=== PATIENT | female | born 1950 | race Caucasian/White ===

== ENCOUNTER → 2016-12-03 | Outpatient (CLI) | payer MEDICARE ==
--- NOTE | 2016-12-03 16:02 | BD ---
EXAMINATION TYPE: MG DEXA axial skeleton. DATE OF EXAM: 12/03/2016 COMPARISON: 11.29.2014 CLINICAL HISTORY: Z79.890 POST MENOPAUSAL Height: 62 Weight: 135 FRAX RISK QUESTIONS: Alcohol (3 or more units per day): NO Family History (Parent hip fracture): NO Glucocorticoids (More than 3mos): NO, ONLY ONE MONTH (Ex: prednisone, prednisolone, methylprednisolone, dexamethasone, and hydrocortisone). History of Fracture in Adulthood: YES Secondary Osteoporosis: NO 1. Type 1 Diabetes: NO 2. Hyperthyroidism: NO 3. Menopause before 45: NO 4. Malnutrition: NO 5. Chronic liver disease: NO Rheumatoid Arthritis: NO Current Tobacco Use: NO RISK FACTORS HISTORY OF: STRESS FX LT FOOT, LAST YR When: AT AGE 65 Family History of Osteoporosis: NO Active: YES Diet low in dairy products/other sources of calcium: NO Postmenopausal woman: YES AT 57 YRS OLD Lost more than 2 inches in height since high school: NO Hyperparathyroidism: NO Adrenal Insufficiency: NO MEDICATIONS: Prednisone or other steroids: PREDNISONE LAST MONTH FOR RESP. FLU How Long: FOR MONTH Osteoporosis Medications: YES, FOSOMAX How Lon-4 YRS Additional Medications: BP MEDS, REFLUX MEDICATION, MULTIVITAMIN Additional History: PRESENTLY HAS MONONUCLEOSIS, EXAM MEASUREMENTS: Bone mineral densitometry was performed using the [employer] System. Bone mineral density as measured about the Lumbar spine is: ----- L1-L4(G/cm2): 0.983 T Score Values are as follows: ----- L1: -1.6 ----- L2: -1.7 ----- L3: -1.1 ----- L4: -2.3 ----- L1-L4: -1.6 Bone mineral density has: Increased 7.1%jennifer study of: 11.29.2014 Bone mineral density about the R hip (g/cm2): 0.755 Bone mineral density about the L hip (g/cm2): 0.829 T Score values are as follows: -----R Neck: -2.1 -----L Neck: -1.7 -----R Total: -2.0 -----L Total: -1.4 Bone mineral density has: Increased 4.5%jennifer study of: 07.17.2015 FRAX%'S: THERE IS A 19.5% CHANCE OF A MAJOR OSTEOPOROTIC FX AND A 3.6% CHANCE OF A HIP FX.....PRO BABILITY IN 10 YRS TIME IMPRESSION: Osteopenia (T Score between -2.5 and -1 as noted by T score values There is slightly increased risk of fracture and the patient may be considered for treatment. Re-Screen 2-5 years FOR BOTH OF HER HIPS AND LUMBAR SPINE Bone density is improved 7.1% from 11/29/2014 within the lumbar spine. Bone density is improved 4.5% w ithin the bilateral hips from 2015 NOTE: T-SCORE=SD OF THE YOUNG ADULT MEAN.
--- NOTE | 2016-12-06 12:50 | MM ---
Reason for exam: screening (asymptomatic). Last mammogram was performed 2 years ago. History: Patient is postmenopausal and history of other cancer. Took hormonal contraceptives for 3 years beginning at age 17. Physical Findings: A clinical breast exam by your physician is recommended on an annual basis and results should be correlated with mammographic findings. MG 3D Screening Mammo W/Cad Bilateral CC and MLO view(s) were taken. Prior study comparison: November 29, 2014, bilateral MG screening mammo w CAD. November 28, 2013, bilateral MG screening mammo w CAD. November 24, 2012, bilateral digital screening mammo w/CAD. The breast tissue is heterogeneously dense. This may lower the sensitivity of mammography. Finding: There are typically benign round calcifications in both breasts. There is no discrete abnormality. ASSESSMENT: Benign, BI-RAD 2 RECOMMENDATION: Routine screening mammogram of both breasts in 1 year.
== END | disposition home or self-care (01) ==
LOC: RADMAMWWP 12:53
PROVIDERS: ATTEND Family Medicine
DX: Z12.31 Encounter for screening mammogram for malignant neoplasm of breast (principal); M85.88 Other specified disorders of bone density and structure, other site; Z79.890 Hormone replacement therapy
CPT/HCPCS: 77080; 77063; G0202

== ENCOUNTER → 2016-12-29 | Outpatient (CLI) | payer MEDICARE ==
--- NOTE | 2016-12-29 12:53 | CT ---
EXAMINATION TYPE: CT sinus wo con DATE OF EXAM: 12/29/2016 COMPARISON: NONE HISTORY: Atypical facial pain CT DLP: [address] of the paranasal sinuses was performed in the axial and coronal planes. Bone and soft tissue settings are submitted. The paranasal sinuses demonstrate normal aeration and development. The paranasal sinuses are free of air fluid level. Mild mucosal thickening at the base of the right maxillary sinus. The osteal meatal units are patent bilaterally. The nasal septum is mildly deviated from right to left. No bony destructive changes are seen within the field of view. IMPRESSION: Mild chronic sinusitis right maxillary sinus. Mild nasal septal deviation.
== END | disposition home or self-care (01) ==
LOC: RADCTMAIN 12:27
PROVIDERS: ATTEND Otolaryngology
DX: J32.0 Chronic maxillary sinusitis (principal); J34.2 Deviated nasal septum
CPT/HCPCS: 70486

== ENCOUNTER → 2017-12-28 | Outpatient (CLI) | payer MEDICARE ==
--- NOTE | 2018-01-02 12:13 | MM ---
Reason for exam: screening (asymptomatic). Last mammogram was performed 1 year and 1 month ago. History: Patient is postmenopausal and has history of other cancer at age 29. Took hormonal contraceptives for 3 years beginning at age 17. Physical Findings: A clinical breast exam by your physician is recommended on an annual basis and results should be correlated with mammographic findings. MG 3D Screening Mammo W/Cad Bilateral CC and MLO view(s) were taken. Prior study comparison: December 03, 2016, bilateral MG 3d screening mammo w/cad. November 29, 2014, bilateral MG screening mammo w CAD. The breast tissue is heterogeneously dense. This may lower the sensitivity of mammography. There is no discrete abnormality. No significant changes when compared with prior studies. ASSESSMENT: Negative, BI-RAD 1 RECOMMENDATION: Routine screening mammogram of both breasts in 1 year.
== END | disposition home or self-care (01) ==
LOC: RADMAMWWP 14:56
PROVIDERS: ATTEND Family Medicine
DX: Z12.31 Encounter for screening mammogram for malignant neoplasm of breast (principal)
CPT/HCPCS: 77063; 77067

== ENCOUNTER 2018-11-02 21:10 | Emergency (ER) | payer MEDICARE ==
[2018-11-02 21:53] VITALS: RESP 18; TEMP 98.8
[2018-11-02] MEDS ORDERED: LABETALOL SYRINGE 5 MG/ML IVP STA (22:08)
[2018-11-02] MEDS ORDERED: SODIUM CHLORIDE 0.9% 1,000 ML IV STA (22:08)
--- NOTE | 2018-11-02 22:09 | ED ---
Recheck HPI - General Chief Complaint: Recheck/Abnormal Lab/Rx Stated Complaint: Eye Pain,High Blood Pressure Time Seen by Provider: 11/02/18 22:07 Source: patient, RN notes reviewed, old records reviewed Mode of arrival: ambulatory Limitations: no limitations - History of Present Illness Initial Comments: This is a 68-year-old female the ER for evaluation of elevated blood pressure history of high blood pressure also complaining of headache oxygen migraine-type headache. Patient has recent addition of blood pressure medication to medication regimen for blood pressure continues to increase. Aside from medics denies any complaints of chest pain shortness breath or abdominal pain MD Complaint: other (abnormal high blood presssure) -: week(s) Returns Today for: other (abnormal blood pressure) Symptoms Since Prior Visit: no new symptoms Context: called for abnormal lab result Associated Symptoms: none - Related Data Home Medications Medication Instructions Recorded Confirmed Omeprazole 40 mg PO AC-SUPPER 11/02/15 11/02/18 Atenolol [Tenormin] 25 mg PO HS 11/02/18 11/02/18 Calcium Carbonate [Calcium] 600 mg PO DAILY 11/02/18 11/02/18 Famotidine [Pepcid AC] 10 mg PO DAILY 11/02/18 11/02/18 Previous Rx's Medication Instructions Recorded Hydrochlorothiazide [Hydrodiuril] 25 mg PO DAILY #30 tab 11/02/18 Allergies Allergy/AdvReac Type Severity Reaction Status Date / Time fentanyl AdvReac Nausea & Verified 11/02/18 22:13 Vomiting Review of Systems ROS Statement: Those systems with pertinent positive or pertinent negative responses have been documented in the HPI. ROS Other: All systems not noted in ROS Statement are negative. Past Medical History Past Medical History: Cancer, GERD/Reflux, Hypertension Additional Past Medical History / Comment(s): HX OF colitis, HX SKIN CA, History of Any Multi-Drug Resistant Organisms: None Reported Past Surgical History: No Surgical Hx Reported Past Anesthesia/Blood Transfusion Reactions: No Reported Reaction Past Psychological History: No Psychological Hx Reported Smoking Status: Never smoker Past Alcohol Use History: None Reported Past Drug Use History: None Reported - Past Family History Father Family Medical History: CVA/TIA General Exam Limitations: no limitations General appearance: alert, in no apparent distress Head exam: Present: atraumatic, normocephalic, normal inspection Eye exam: Present: normal appearance, PERRL, EOMI. Absent: scleral icterus, conjunctival injection, periorbital swelling ENT exam: Present: normal exam, mucous membranes moist Neck exam: Present: normal inspection. Absent: tenderness, meningismus, lymphadenopathy Respiratory exam: Present: normal lung sounds bilaterally. Absent: respiratory distress, wheezes, rales, rhonchi, stridor Cardiovascular Exam: Present: regular rate, normal rhythm, normal heart sounds. Absent: systolic murmur, diastolic murmur, rubs, gallop, clicks GI/Abdominal exam: Present: soft, normal bowel sounds. Absent: distended, tenderness, guarding, rebound, rigid Extremities exam: Present: normal inspection, full ROM, normal capillary refill. Absent: tenderness, pedal edema, joint swelling, calf tenderness Back exam: Present: normal inspection Neurological exam: Present: alert, oriented X3, CN II-XII intact Psychiatric exam: Present: normal affect, normal mood Skin exam: Present: warm, dry, intact, normal color. Absent: rash Course Vital Signs 11/02/18 11/02/18 11/02/18 21:50 22:25 22:30 Temperature 98.8 F Pulse Rate 66 66 65 Respiratory 18 18 18 Rate Blood Pressure 203/85 173/90 181/83 O2 Sat by Pulse 100 98 98 Oximetry Medical Decision Making - Medical Decision Making 68 female the ER for evaluation of high blood pressure. Patient will be started on new blood pressure medication and can be discharged home - Lab Data Result diagrams: 11/02/18 22:20 11/02/18 22:20 Lab Results 11/02/18 11/02/18 11/02/18 Range/Units 22:20 22:20 22:20 WBC 5.6 (3.8-10.6) k/uL RBC 4.41 (3.80-5.40) m/uL Hgb 12.9 (11.4-16.0) gm/dL Hct 39.3 (34.0-46.0) % MCV 89.1 (80.0-100.0) fL MCH 29.2 (25.0-35.0) pg MCHC 32.8 (31.0-37.0) g/dL RDW 13.8 (11.5-15.5) % Plt Count 236 (150-450) k/uL Neutrophils % 63 % Lymphocytes % 25 % Monocytes % 6 % Eosinophils % 3 % Basophils % 0 % Neutrophils # 3.5 (1.3-7.7) k/uL Lymphocytes # 1.4 (1.0-4.8) k/uL Monocytes # 0.3 (0-1.0) k/uL Eosinophils # 0.2 (0-0.7) k/uL Basophils # 0.0 (0-0.2) k/uL Sodium 142 (137-145) mmol/L Potassium 4.3 (3.5-5.1) mmol/L Chloride 105 (98-107) mmol/L Carbon Dioxide 30 (22-30) mmol/L Anion Gap 7 mmol/L BUN 18 H (7-17) mg/dL Creatinine 0.89 (0.52-1.04) mg/dL Est GFR (CKD-EPI)AfAm 77 (>60 ml/min/1.73 sqM) Est GFR (CKD-EPI)NonAf 66 (>60 ml/min/1.73 sqM) Glucose 108 H (74-99) mg/dL Calcium 9.3 (8.4-10.2) mg/dL Phosphorus 3.9 (2.5-4.5) mg/dL Magnesium 2.2 (1.6-2.3) mg/dL Total Bilirubin 0.2 (0.2-1.3) mg/dL AST 21 (14-36) U/L ALT 24 (9-52) U/L Alkaline Phosphatase 93 (38-126) U/L Troponin I (0.000-0.034) ng/mL NT-Pro-B Natriuret Pep 470 pg/mL Total Protein 6.5 (6.3-8.2) g/dL Albumin 4.2 (3.5-5.0) g/dL 11/02/18 Range/Units 22:20 WBC (3.8-10.6) k/uL RBC (3.80-5.40) m/uL Hgb (11.4-16.0) gm/dL Hct (34.0-46.0) % MCV (80.0-100.0) fL MCH (25.0-35.0) pg MCHC (31.0-37.0) g/dL RDW (11.5-15.5) % Plt Count (150-450) k/uL Neutrophils % % Lymphocytes % % Monocytes % % Eosinophils % % Basophils % % Neutrophils # (1.3-7.7) k/uL Lymphocytes # (1.0-4.8) k/uL Monocytes # (0-1.0) k/uL Eosinophils # (0-0.7) k/uL Basophils # (0-0.2) k/uL Sodium (137-145) mmol/L Potassium (3.5-5.1) mmol/L Chloride (98-107) mmol/L Carbon Dioxide (22-30) mmol/L Anion Gap mmol/L BUN (7-17) mg/dL Creatinine (0.52-1.04) mg/dL Est GFR (CKD-EPI)AfAm (>60 ml/min/1.73 sqM) Est GFR (CKD-EPI)NonAf (>60 ml/min/1.73 sqM) Glucose (74-99) mg/dL Calcium (8.4-10.2) mg/dL Phosphorus (2.5-4.5) mg/dL Magnesium (1.6-2.3) mg/dL Total Bilirubin (0.2-1.3) mg/dL AST (14-36) U/L ALT (9-52) U/L Alkaline Phosphatase (38-126) U/L Troponin I <0.012 (0.000-0.034) ng/mL NT-Pro-B Natriuret Pep pg/mL Total Protein (6.3-8.2) g/dL Albumin (3.5-5.0) g/dL - EKG Data -: EKG Interpreted by Me (EKG shows sinus rhythm rate of 64, ID 180, QRS 74, QTC 398) Disposition Clinical Impression: Hypertension Disposition: HOME SELF-CARE Condition: Good Instructions (If sedation given, give patient instructions): Hypertension (ED) Prescriptions: Hydrochlorothiazide [Hydrodiuril] 25 mg PO DAILY #30 tab Is patient prescribed a controlled substance at d/c from ED?: No Referrals: Kylah Obrien MD [Primary Care Provider] - 1-2 days
[2018-11-02 22:36] LABS: Basophils % (A) 0 %; Eosinophils # (A) 0.2 k/uL (0-0.7); Eosinophils % (A) 3 %; HCT 39.3 % (34.0-46.0); HGB 12.9 gm/dL (11.4-16.0); Lymphocytes # (A) 1.4 k/uL (1.0-4.8); Lymphocytes % (A) 25 %; MCH 29.2 pg (25.0-35.0); MCHC 32.8 g/dL (31.0-37.0); MCV 89.1 fL (80.0-100.0); Mean Platelet Volume 8.3; Monocytes # (A) 0.3 k/uL (0-1.0); Monocytes % (A) 6 %; Neutrophils # (A) 3.5 k/uL (1.3-7.7); Neutrophils % (A) 63 %; Platelet Count 236 k/uL (150-450); RBC 4.41 m/uL (3.80-5.40); RDW 13.8 % (11.5-15.5); WBC 5.6 k/uL (3.8-10.6)
[2018-11-02 22:44] LABS: Albumin 4.2 g/dL (3.5-5.0); Calcium 9.3 mg/dL (8.4-10.2); Magnesium 2.2 mg/dL (1.6-2.3); Phosphorus 3.9 mg/dL (2.5-4.5); Potassium 4.3 mmol/L (3.5-5.1); Total Bilirubin 0.2 mg/dL (0.2-1.3); Total Protein 6.5 g/dL (6.3-8.2)
--- NOTE | 2018-11-02 23:05 | CT ---
EXAM: CT Head Without Intravenous Contrast CLINICAL HISTORY: ITS.REASON CT Reason: pain TECHNIQUE: Axial computed tomography images of the head/brain without intravenous contrast. This CT exam was performed using one or more of the following dose reduction techniques: automated exposure control, adjustment of the mA and/or kV according to patient size, and/or use of iterative reconstruction technique. COMPARISON: No relevant prior studies available. FINDINGS: Brain: No hemorrhage. No edema. Ventricles: Unremarkable. No ventriculomegaly. Bones/joints: No acute fracture. Soft tissues: Unremarkable. Sinuses: No fluid levels. Mastoid air cells: Unremarkable as visualized. No mastoid effusion. IMPRESSION: No acute intracranial findings
[2018-11-02 23:59] VITALS: BP 179/81; PULSE 66
[2018-11-03 00:08] LABS: Appearance,Urine Clear (Clear); Bilirubin,Urine Negative (Negative); Blood,Urine Negative (Negative); Color,Urine Colorless; Glucose,Urine (UA) Negative (Negative); Ketones,Urine Negative (Negative); Leukocyte Esterase,Urine Trace (Negative); Mucus,Urine Rare /hpf; Nitrite,Urine Negative (Negative); PH, Urine 7.5 (5.0-8.0); Protein,Urine Negative (Negative); RBC,Urine 1 /hpf (0-5); Specific Gravity,Urine 1.009 (1.001-1.035); Urobilinogen,Urine <2.0 mg/dL (<2.0)
== END 2018-11-02 23:51 | disposition home or self-care (01) ==
LOC: EC 21:10
DX: I10 Essential (primary) hypertension (principal); K21.9 Gastro-esophageal reflux disease without esophagitis; Z79.899 Other long term (current) drug therapy; Z88.5 Allergy status to narcotic agent; Z85.828 Personal history of other malignant neoplasm of skin
CPT/HCPCS: 36415; 70450; 80053; 81001; 83735; 83880; 84100; 84484; 85025; 93005; 96361; 96374; 99284

== ENCOUNTER → 2018-12-29 | Outpatient (CLI) | payer MEDICARE ==
--- NOTE | 2018-12-29 15:19 | BD ---
EXAMINATION TYPE: Axial Bone Density DATE OF EXAM: 12/29/2018 COMPARISON: 2017 CLINICAL HISTORY: M [age] Height: 5 FT 2 IN Weight: 137 FRAX RISK QUESTIONS: RISK FACTORS HISTORY OF: Active: YES Postmenopausal woman: AGE 57 MEDICATIONS: Additional Medications: OMEPRAZOLE, VAERAPAMIL,LOSARTIN, EYE VITAMINS, Additional History: EXAM MEASUREMENTS: Bone mineral densitometry was performed using the [employer] System. Bone mineral density as measured about the Lumbar spine is: ----- L1-L4(G/cm2): 0.921 T Score Values are as follows: ----- L2: -2.4 ----- L3: -1.4 ----- L4: -3.1 ----- L1-L4: -2.2 Bone mineral density has: DECREASED -7.3 % since study of: 2016 Bone mineral density about the R hip (g/cm2): 0.745 Bone mineral density about the L hip (g/cm2): 0.815 T Score values are as follows: -----R Neck: -2.1 -----L Neck: -1.6 -----R Total: -2.2 -----L Total: -1.5 Bone mineral density has: DECREASED -2.7 % since study of: 2016 IMPRESSION: Osteopenia (T Score between -2.5 and -1). There is slightly increased risk of fracture and the patient may be considered for treatment. Re-Screen 2-5 years. NOTE: T-SCORE=SD OF THE YOUNG ADULT MEAN.
--- NOTE | 2019-01-02 09:21 | MM ---
Reason for exam: screening (asymptomatic). Last mammogram was performed 1 year ago. History: Patient is postmenopausal and has history of other cancer at age 29. Took hormonal contraceptives for 3 years beginning at age 17. Physical Findings: A clinical breast exam by your physician is recommended on an annual basis and results should be correlated with mammographic findings. MG 3D Screening Mammo W/Cad Bilateral CC and MLO view(s) were taken. Prior study comparison: December 28, 2017, bilateral MG 3d screening mammo w/cad. December 03, 2016, bilateral MG 3d screening mammo w/cad. There are scattered fibroglandular densities. There is chronic nodularity in the left breast. No significant changes when compared with prior studies. ASSESSMENT: Negative, BI-RAD 1 RECOMMENDATION: Routine screening mammogram of both breasts in 1 year.
== END | disposition home or self-care (01) ==
LOC: RADMAMWWP 13:25
PROVIDERS: ATTEND Family Medicine
DX: Z12.31 Encounter for screening mammogram for malignant neoplasm of breast (principal); M85.89 Other specified disorders of bone density and structure, multiple sites
CPT/HCPCS: 77063; 77067; 77080

== ENCOUNTER → 2019-10-02 | Outpatient (CLI) | payer MEDICARE ==
--- NOTE | 2019-10-02 09:29 | MM ---
Reason for exam: clinical finding. Last mammogram was performed 9 months ago. History: Patient is postmenopausal and has history of other cancer at age 29. Took hormonal contraceptives for 3 years beginning at age 17. Physical Findings: Nurse did not find any significant physical abnormalities on exam. MG 3D Diag Mammo W/Cad RAHEL Bilateral CC and MLO view(s) were taken. Prior study comparison: December 29, 2018, bilateral MG 3d screening mammo w/cad. December 28, 2017, bilateral MG 3d screening mammo w/cad. December 03, 2016, bilateral MG 3d screening mammo w/cad. The breast tissue is heterogeneously dense. This may lower the sensitivity of mammography. There are benign appearing round calcifications in the left breast. There is chronic nodularity in the left breast. There is no discrete abnormality. These results were verbally communicated with the patient and result sheet given to the patient on 10/02/19. ASSESSMENT: Benign, BI-RAD 2 RECOMMENDATION: Routine screening mammogram of both breasts in 1 year. Manage on a clinical basis with regard to breast pain.
== END | disposition home or self-care (01) ==
LOC: RADMAMWWP 08:13
PROVIDERS: ATTEND Family Medicine
DX: N64.4 Mastodynia (principal)
CPT/HCPCS: 77066; G0279; 77062

== ENCOUNTER → 2020-11-21 | Outpatient (CLI) | payer MEDICARE ==
--- NOTE | 2020-11-25 11:11 | MM ---
Reason for exam: screening (asymptomatic). Last mammogram was performed 1 year and 2 months ago. History: Patient is postmenopausal and has history of other cancer at age 29. Took hormonal contraceptives for 3 years beginning at age 17. Physical Findings: A clinical breast exam by your physician is recommended on an annual basis and results should be correlated with mammographic findings. MG 3D Screening Mammo W/Cad Bilateral CC and MLO view(s) were taken. Prior study comparison: October 02, 2019, bilateral MG 3d diag mammo w/cad RAHEL. December 29, 2018, bilateral MG 3d screening mammo w/cad. The breast tissue is heterogeneously dense. This may lower the sensitivity of mammography. Stable benign calcifications. There is no discrete abnormality. No significant changes when compared with prior studies. ASSESSMENT: Benign, BI-RAD 2 RECOMMENDATION: Routine screening mammogram of both breasts in 1 year.
== END | disposition home or self-care (01) ==
LOC: RADMAMWWP 14:05
PROVIDERS: ATTEND Family Medicine
DX: Z12.31 Encounter for screening mammogram for malignant neoplasm of breast (principal); Z78.0 Asymptomatic menopausal state; Z85.9 Personal history of malignant neoplasm, unspecified; Z79.3 Long term (current) use of hormonal contraceptives
CPT/HCPCS: 77063; 77067

== ENCOUNTER → 2021-12-01 | Outpatient (CLI) | payer MEDICARE ==
--- NOTE | 2021-12-02 12:21 | BD ---
EXAMINATION TYPE: Axial Bone Density DATE OF EXAM: 12/01/2021 COMPARISON: 12/03/2016 CLINICAL HISTORY: 71 years year old Female. ICD-10 CODE: M81.0 OSTEOPOROSIS Height: 62 IN Weight: 117 LBS FRAX RISK QUESTIONS: History of Fracture in Adulthood: RT FOOT FX AGE 64 RISK FACTORS HISTORY OF: Active: YES Postmenopausal woman: AGE 57 MEDICATIONS: Osteoporosis Medications: NOT NOW Which medication: Boniva How Lon YEAR Additional Medications: CALCIUM, VALSARTAN, VERAPAMIL, OMEPRAZOLE, EXAM MEASUREMENTS: Bone mineral densitometry was performed using the [employer] System. Bone mineral density as measured about the Lumbar spine is: ----- L1-L4(G/cm2): 0.921 T Score Values are as follows: ----- L1: -2.0 ----- L2: -2.1 ----- L3: -1.7 ----- L4: -2.9 ----- L1-L4: -2.2 Bone mineral density has: Decreased -6.8% since study of: 12/03 Bone mineral density about the R hip (g/cm2): 0.737 Bone mineral density about the L hip (g/cm2): 0.778 T Score values are as follows: -----R Neck: -2.2 -----L Neck: -1.9 -----R Total: -2.4 -----L Total: -1.9 Bone mineral density has: Decreased -6.6% since study of: 12/03/2016 FRAX%s: The graph provided illustrates a 19.1 chance for a major osteoporotic fx and a 4.7 chance for the hips probability for fx in 10 years time. IMPRESSION: Osteopenia (T Score between -2.5 and -1). There is slightly increased risk of fracture and the patient may be considered for treatment. Re-Screen 2-5 years. NOTE: T-SCORE=SD OF THE YOUNG ADULT MEAN.
--- NOTE | 2021-12-02 15:06 | MM ---
Reason for Exam: Screening (asymptomatic). Last screening mammogram was performed 12 month(s) ago. Patient History: Menarche at age 12. First Full-Term at age 20. Postmenopausal. Other cancer, age 29. Hormonal Contraceptives for 3 years from age 17 until age 39. Risk Values: Abi 5 year model risk: 1.6%. NCI Lifetime model risk: 4.1%. Prior Study Comparison: 12/29/2018 Bilateral Screening Mammogram, [facility]. 10/02/2019 Bilateral Diagnostic Mammogram, [facility]. 11/21/2020 Bilateral Screening Mammogram, [facility]. Tissue Density: There are scattered fibroglandular densities. Findings: Analyzed By CAD. There is no suspicious group of microcalcifications or new suspicious mass in either breast. Overall Assessment: Benign, BI-RAD 2 Management: Screening Mammogram of both breasts in 1 year. A clinical breast exam by your physician is recommended on an annual basis and results should be correlated with mammographic findings. Electronically signed and approved by: Jimmy Azul M.D. Radiologis
== END | disposition home or self-care (01) ==
LOC: RADMAMWWP 14:55
PROVIDERS: ATTEND Family Medicine
DX: Z12.31 Encounter for screening mammogram for malignant neoplasm of breast (principal); Z78.0 Asymptomatic menopausal state; M85.9 Disorder of bone density and structure, unspecified
CPT/HCPCS: 77063; 77067; 77080

== ENCOUNTER → 2023-12-13 | Outpatient (CLI) | payer MEDICARE ==
--- NOTE | 2023-12-14 08:50 | MM ---
Reason for Exam: Screening (asymptomatic). Last screening mammogram was performed 12 month(s) ago. Patient History: Menarche at age 12. First Full-Term at age 20. Postmenopausal. Other cancer, age 29. Hormonal Contraceptives for 3 years from age 17 until age 39. Risk Values: Abi 5 year model risk: 1.6%. NCI Lifetime model risk: 3.7%. Prior Study Comparison: 11/21/2020 Bilateral Screening Mammogram, [facility]. 12/01/2021 Bilateral MG 3D screening mammo w/cad, [facility]. 12/02/2022 Bilateral MG 3D screening mammo w/cad, [facility]. Tissue Density: The breasts are heterogeneously dense, which may obscure small masses. Findings: Analyzed By CAD. There is no suspicious group of microcalcifications or new suspicious mass in either breast. Overall Assessment: Benign, BI-RAD 2 Management: Screening Mammogram of both breasts in 1 year. . Patient should continue monthly self-breast exams. A clinical breast exam by your physician is recommended on an annual basis. This exam should not preclude additional follow-up of suspicious palpable abnormalities. Note on Abi scores and lifetime risk: 1. A Abi score greater than 3% is considered moderate risk. If this is the case, consider specialist referral to assess eligibility for a risk reducing agent. 2. If overall lifetime risk for the development of breast cancer is 20% or higher, the patient may qualify for future screening with alternating mammogram and breast MRI. Electronically signed and approved by: Nasir Brandon M.D. Radiologis
== END | disposition home or self-care (01) ==
LOC: RADMAMWWP 10:58
PROVIDERS: ATTEND Family Medicine
DX: Z12.31 Encounter for screening mammogram for malignant neoplasm of breast (principal); R92.333 Mammographic heterogeneous density, bilateral breasts; Z78.0 Asymptomatic menopausal state
CPT/HCPCS: 77063; 77067

== ENCOUNTER 2024-10-26 07:35 | Inpatient (IN) | payer MEDICARE ==
[2024-10-26] MEDS ORDERED: VANCOMYCIN IV PER PHARMACY 1 EACH MISC MISCELLANE PRN (08:15)
--- NOTE | 2024-10-26 08:18 | ED ---
Extremity Problem HPI - General Chief complaint: Recheck/Abnormal Lab/Rx Stated complaint: Skin infection on left arm Time Seen by Provider: 10/26/24 08:10 Source: patient, RN notes reviewed Mode of arrival: ambulatory Limitations: no limitations - History of Present Illness Initial comments: This is a 74-year-old female who presents to the emergency department for left arm pain and swelling. States that 3 days ago she had a melanoma removed from her left arm with Dr. Cartagena, dermatology. She started to notice some redness and swelling around the site afterwards and yesterday she was started on Keflex. Since then this continues to get worse and when she woke up the swelling started to go down the whole arm. States that her whole arm is now very painful and swollen and she has started to have drainage from the incision site. Denies any fevers or chills, but states that her whole body feels achy. - Related Data Home Medications Medication Instructions Recorded Confirmed Famotidine [Pepcid] 20 mg PO BID 10/26/24 10/26/24 Losartan Potassium [Cozaar] 100 mg PO DAILY 10/26/24 10/26/24 Verapamil HCl [Verapamil ER] 180 mg PO DAILY 10/26/24 10/26/24 Allergies Allergy/AdvReac Type Severity Reaction Status Date / Time fentanyl AdvReac Nausea & Verified 10/26/24 10:11 Vomiting Review of Systems ROS Statement: Those systems with pertinent positive or pertinent negative responses have been documented in the HPI. ROS Other: All systems not noted in ROS Statement are negative. Past Medical History Past Medical History: Cancer, GERD/Reflux, Hypertension Additional Past Medical History / Comment(s): HX OF colitis, HX SKIN CA, History of Any Multi-Drug Resistant Organisms: None Reported Past Surgical History: No Surgical Hx Reported Past Anesthesia/Blood Transfusion Reactions: No Reported Reaction Past Psychological History: No Psychological Hx Reported Smoking Status: Never smoker Past Alcohol Use History: None Reported Past Drug Use History: None Reported - Past Family History Father Family Medical History: CVA/TIA General Exam Limitations: no limitations General appearance: alert, in no apparent distress Head exam: Present: atraumatic, normocephalic, normal inspection Respiratory exam: Present: normal lung sounds bilaterally. Absent: respiratory distress, wheezes, rales, rhonchi, stridor Cardiovascular Exam: Present: regular rate, normal rhythm Extremities exam: Present: other (Incision to the left biceps area is intact, however there is active drainage. Diffuse erythema, swelling, warmth, and tenderness to the left upper extremity surrounding the incision and extending distally. Range of motion limited by pain. 2+ radial pulses.) Neurological exam: Present: alert, oriented X3, CN II-XII intact Psychiatric exam: Present: normal affect, normal mood Course Vital Signs 10/26/24 10/26/24 10/26/24 07:40 09:00 09:59 Temperature 98.3 F Pulse Rate 72 72 Respiratory 20 18 18 Rate Blood Pressure 136/74 135/66 O2 Sat by Pulse 99 97 Oximetry 10/26/24 10/26/24 10/26/24 10:32 10:51 12:27 Temperature Pulse Rate 64 71 62 Respiratory 17 19 17 Rate Blood Pressure 133/67 118/55 O2 Sat by Pulse 98 97 94 L Oximetry 10/26/24 13:38 Temperature Pulse Rate Respiratory 16 Rate Blood Pressure O2 Sat by Pulse Oximetry Medical Decision Making - Medical Decision Making This is a 74 year old female who presents to the emergency department for left arm pain and swelling. Was pt. sent in by a medical professional or institution? @ -No Did you speak to anyone other than the patient for history? @ -No Did you review nursing and triage notes? @ -Yes, and I agree, it is accurate with regards to the patient's symptoms. Were old charts reviewed? @ -No Differential Diagnosis? @ -Cellulitis, abscess, DVT, burn, this is not meant to be an all-inclusive list. EKG interpreted by me (3pts min.)? @ -Not obtained X-rays interpreted by me (1pt min.)? @ -Not obtained CT interpreted by me (1pt min.)? @ -CT scan of the left upper extremity obtained. My interpretation identifies soft tissue swelling. U/S interpreted by me (1pt. min.)? @ -Not obtained What testing was considered but not performed? (CT, X-rays, U/S, labs)? Why? @ -None What meds were considered but not given? Why? @ -None Did you discuss the management of the patient with other professionals? @ -Yes, Dr. Cohen, who accepts the patient for admission. Did you reconcile home meds? @ -No Was smoking cessation discussed for >3mins.? @ -No Was critical care preformed (if so, how long)? @ -No Were there social determinants of health that impacted care today? How? (Homelessness, low income, unemployed, alcoholism, drug addiction, transportation, low edu. Level, literacy, decrease access to med. care, alf, r ehab)? @ -No Was there de-escalation of care discussed even if they declined? (Discuss DNR or withdrawal of care, Hospice)? @ -No What co-morbidities impacted this encounter? (DM, HTN, Smoking, COPD, CAD, Cancer, CVA, Hep., AIDS, mental health diagnosis, sleep apnea, morbid obesity)? @ -Skin cancer Was patient admitted / discharged? @ -Admitted. Lab work demonstrates leukocytosis with a white blood cell count of 14.78. CRP elevated at 21.6. CT scan of the left upper extremity demonstrates soft tissue thickening and edema within the right forearm. There is no underlying abscess or osteomyelitis identified. She also has minimal thickening along the medial upper arm. On exam she had diffuse erythema, swelling, warmth, and tenderness with drainage from the surgical incision. Given the extent of the infection and overall presentation, patient was admitted to medicine for further management of cellulitis. Blood and wound cultures obtained. She was started on vancomycin and cefepime. Consult placed for infectious disease and wound care. Case discussed with ED attending Dr. Wetzel. Undiagnosed new problem with uncertain prognosis? @ -None Drug Therapy requiring intensive monitoring for toxicity (Heparin, Nitro, Insulin, Cardizem)? @ -None Were any procedures done? @ -None Diagnosis/symptom? @ -Cellulitis of left upper extremity Acute, or Chronic, or Acute on Chronic? @ -Acute Uncomplicated (without systemic symptoms) or Complicated (systemic symptoms)? @ -Uncomplicated Side effects of treatment? @ -None Exacerbation, Progression, or Severe Exacerbation] @ -Not applicable Poses a threat to life or bodily function? @ -Yes, can lead to septic shock and - Lab Data Result diagrams: 10/26/24 08:35 10/26/24 08:35 Lab Results 10/26/24 10/26/24 10/26/24 Range/Units 08:35 08:35 08:35 WBC 14.78 H (4.50-10.00) 10*3/uL RBC 3.99 L (4.10-5.20) 10*6/uL Hgb 12.1 (12.0-15.0) g/dL Hct 35.9 L (37.2-46.3) % MCV 90.0 (80.0-97.0) fL MCH 30.3 (27.0-32.0) pg MCHC 33.7 (32.0-37.0) g/dL Plt Count 181 (140-440) 10*3/uL MPV 10.8 (9.5-12.2) fL Immature Gran % (Auto) 0.6 % Neutrophils % 89.0 % Lymphocytes % 3.4 % Monocytes % 6.6 % Eosinophils % 0.3 % Basophils % 0.1 % Immature Gran # 0.09 H (0.00-0.04) 10*3/uL Neutrophils # 13.14 H (1.80-7.70) 10*3/uL Lymphocytes # 0.50 L (0.90-5.00) 10*3/uL Monocytes # 0.98 (0.20-1.00) 10*3/uL Eosinophils # 0.05 (0.04-0.35) 10*3/uL Basophils # 0.02 (0.00-0.10) 10*3/uL Sodium 138 (137-145) mmol/L Potassium 3.3 L (3.5-5.1) mmol/L Chloride 104 (98-107) mmol/L Carbon Dioxide 26 (22-30) mmol/L Anion Gap 8 mmol/L BUN 22 H (7-17) mg/dL Creatinine 0.95 (0.52-1.04) mg/dL Est GFR (CKD-EPI)AfAm 68 (>60 ml/min/1.73 sqM) Est GFR (CKD-EPI)NonAf 59 (>60 ml/min/1.73 sqM) Glucose 108 H (74-99) mg/dL Plasma Lactic Acid Shaw 1.1 (0.7-2.0) mmol/L Calcium 8.7 (8.4-10.2) mg/dL Total Bilirubin 0.6 (0.2-1.3) mg/dL AST 16 (14-36) U/L ALT 13 (4-34) U/L Alkaline Phosphatase 87 (38-126) U/L C-Reactive Protein 21.6 H (<1.0) mg/dL Total Protein 6.1 L (6.3-8.2) g/dL Albumin 3.7 (3.5-5.0) g/dL - Radiology Data Radiology results: report reviewed, image reviewed Disposition Clinical Impression: Left arm cellulitis, Postoperative cellulitis of surgical wound Disposition: ADMITTED IP TO THIS HOSP
[2024-10-26] MEDS ORDERED: RX INFO: IV CONTRAST WAS GIVEN 1 EACH MISC MISCELLANE PRN (08:26)
[2024-10-26 08:43] LABS: Basophils # (A) 0.02 10*3/uL (0.00-0.10); Basophils % (A) 0.1 %; Eosinophils # (A) 0.05 10*3/uL (0.04-0.35); Eosinophils % (A) 0.3 %; HCT 35.9 % (37.2-46.3); HGB 12.1 g/dL (12.0-15.0); Lymphocytes % (A) 3.4 %; MCH 30.3 pg (27.0-32.0); MCHC 33.7 g/dL (32.0-37.0); Mean Platelet Volume 10.8 fL (9.5-12.2); Monocytes # (A) 0.98 10*3/uL (0.20-1.00); Monocytes % (A) 6.6 %; Neutrophils # (A) 13.14 10*3/uL (1.80-7.70); Platelet Count 181 10*3/uL (140-440); RBC 3.99 10*6/uL (4.10-5.20); RDW 13.3 % (11.5-14.5); WBC 14.78 10*3/uL (4.50-10.00)
[2024-10-26] MEDS: KETOROLAC 15 MG/ML 1 ML VIAL IVP STA (08:58)
[2024-10-26] MEDS: SODIUM CHLORIDE 0.9% 1,000 ML IV ONE (08:59)
[2024-10-26] MEDS: MORPHINE SULFATE 4 MG/ML SYRINGE IVP STA (09:00)
[2024-10-26 09:01] LABS: ALT 13 U/L (4-34); AST 16 U/L (14-36); African American GFR (CKD) 68 (>60 ml/min/1.73 sqM); Albumin 3.7 g/dL (3.5-5.0); Alkaline Phosphatase 87 U/L (38-126); Anion Gap 8 mmol/L; Blood Urea Nitrogen 22 mg/dL (7-17); Calcium 8.7 mg/dL (8.4-10.2); Carbon Dioxide 26 mmol/L (22-30); Chloride 104 mmol/L (98-107); Glucose 108 mg/dL (74-99); Non-African American GFR(CKD) 59 (>60 ml/min/1.73 sqM); Potassium 3.3 mmol/L (3.5-5.1); Sodium 138 mmol/L (137-145); Total Bilirubin 0.6 mg/dL (0.2-1.3); Total Protein 6.1 g/dL (6.3-8.2)
[2024-10-26] MEDS: CEFEPIME 1 GM in SODIUM CHLORIDE 0.9% 50 ML IVPB ONE (09:15)
[2024-10-26 09:19] LABS: C Reactive Protein 21.6 mg/dL (<1.0)
[2024-10-26] MEDS: diphenhydrAMINE 50 MG/ML 1 ML VIAL IVP STA (09:55)
[2024-10-26] MEDS: FAMOTIDINE 20 MG/2 ML VIAL IV STA (09:57)
[2024-10-26] MEDS: ONDANSETRON 4 MG/2 ML VIAL IVP STA (09:59)
[2024-10-26] MEDS ORDERED: ACETAMINOPHEN TAB 325 MG TAB PO PRN (10:21)
[2024-10-26] MEDS ORDERED: NALOXONE 0.4 MG/ML 1 ML VIAL IV PRN (10:21)
[2024-10-26] MEDS ORDERED: KETOROLAC 15 MG/ML 1 ML VIAL IVP PRN (10:21)
[2024-10-26] MEDS ORDERED: MORPHINE SULFATE 4 MG/ML SYRINGE IV PRN (10:21)
[2024-10-26] MEDS: SODIUM CHLORIDE 0.9% 1,000 ML IV SCH (10:31)
--- NOTE | 2024-10-26 10:49 | CT ---
EXAMINATION TYPE: CT upper extremity LT w con DATE OF EXAM: 10/26/2024 9:56 AM COMPARISON: None. CLINICAL INDICATION: Female, 74 years old with history of Pain and swelling after surgery, Pt had CA mole removed from arm on Tuesday, arm is now red, swollen and oozing. TECHNIQUE: Contrast used:80 ml mL of Isovue 300 with IV Contrast, (none if empty) Oral contrast used: (none if empty) Axial images at 5 mm thick sections. Reconstructed images in the coronal and sagittal planes. FINDINGS: Osseous structures appear intact. No cortical erosion is evident. There is some mild superficial soft tissue thickening along the ulnar aspect of the mid right forearm . No underlying abscess is evident. There is some mild soft tissue changes at the elbow near the olec ranon. Some mild thickening along the medial upper arm scan is present example image 159. No underlyi ng abscess is evident. IMPRESSION: 1. SOFT TISSUE THICKENING AND EDEMA WITHIN THE RIGHT FOREARM. NO UNDERLYING ABSCESS OR OSTEOMYELITIS IDENTIFIED. 2. SOME MINIMAL THICKENING ALONG THE MEDIAL UPPER ARM SKIN MAY BE PRESENT. [facility], , 10/26/2024 10:47 AM
[2024-10-26] MEDS: VANCOMYCIN 1,000 MG in SODIUM CHLORIDE 0.9% 250 ML IVPB ONE (10:51)
--- NOTE | 2024-10-26 12:08 | P.HPIM ---
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 No specific GI/ symptoms. No smoking alcohol illicit drugs. She is hemodynamically stable afebrile Labs unremarkable except for mild leukocytosis of 14.7 CT of the left upper extremity showing soft tissue swelling and thickening and edema within the right forearm with no underlying osteomyelitis. Patient was started on antibiotics and admitted with ID team consult Review of Systems Review of systems CONSTITUTIONAL: No fever, no malaise, no fatigue. HEENT: No recent visual problems or hearing problems. Denied any sore throat. CARDIOVASCULAR: No orthopnea, PND, no palpitations, no syncope. PULMONARY: No shortness of breath, no cough, no hemoptysis. GASTROINTESTINAL: No diarrhea, no nausea, no vomiting, no abdominal pain. Normoactive bowel sounds. NEUROLOGICAL: No headaches, no weakness, no numbness. HEMATOLOGICAL: Denies any bleeding or petechiae. GENITOURINARY: Denies any burning micturition, frequency, or urgency. MUSCULOSKELETAL/RHEUMATOLOGICAL: Denies any joint pain, swelling, or any muscle pain. ENDOCRINE: Denies any polyuria or polydipsia. Past Medical History Past Medical History: Cancer, GERD/Reflux, Hypertension Additional Past Medical History / Comment(s): HX OF colitis, HX SKIN CA, History of Any Multi-Drug Resistant Organisms: None Reported Past Surgical History: No Surgical Hx Reported Past Anesthesia/Blood Transfusion Reactions: No Reported Reaction Past Psychological History: No Psychological Hx Reported Smoking Status: Never smoker Past Alcohol Use History: None Reported Past Drug Use History: None Reported - Past Family History Father Family Medical History: CVA/TIA Medications and Allergies Home Medications Medication Instructions Recorded Confirmed Type Famotidine [Pepcid] 20 mg PO BID 10/26/24 10/26/24 History Losartan Potassium [Cozaar] 100 mg PO DAILY 10/26/24 10/26/24 History Verapamil HCl [Verapamil ER] 180 mg PO DAILY 10/26/24 10/26/24 History Allergies Allergy/AdvReac Type Severity Reaction Status Date / Time fentanyl AdvReac Nausea & Verified 10/26/24 10:11 Vomiting Physical Exam Vitals: Vital Signs Temp Pulse Resp BP Pulse Ox 10/26/24 10:51 71 19 97 10/26/24 10:32 64 17 133/67 98 10/26/24 09:59 18 10/26/24 09:00 72 18 135/66 97 10/26/24 07:40 98.3 F 72 20 136/74 99 Intake and Output 10/25/24 10/26/24 10/26/24 22:59 06:59 14:59 Other: Weight 54.431 kg GENERAL: The patient is alert and oriented x3, not in any acute distress. Well developed, well nourished. HEENT: Pupils are round and equally reacting to light. EOMI. No scleral icterus. No conjunctival pallor. Normocephalic, atraumatic. No pharyngeal erythema. No thyromegaly. CARDIOVASCULAR: S1 and S2 present. No murmurs, rubs, or gallops. PULMONARY: Chest is clear to auscultation, no wheezing , no crackles. ABDOMEN: Soft, nontender, nondistended, normoactive bowel sounds. No palpable organomegaly. -MUSCULOSKELETAL: No joint swelling or deformity. Left distal arm surgical wound closed about 3 to 4 inches in diameter with surrounding cellulitis with redness swelling warmth and tenderness EXTREMITIES: No cyanosis, clubbing, or pedal edema. NEUROLOGICAL: Gross neurological examination did not reveal any focal deficits. SKIN: No rashes. no petechiae. Results CBC & Chem 7: 10/26/24 08:35 10/26/24 08:35 Labs: Abnormal Lab Results - Last 24 Hours (Table) 10/26/24 10/26/24 Range/Units 08:35 08:35 WBC 14.78 H (4.50-10.00) 10*3/uL RBC 3.99 L (4.10-5.20) 10*6/uL Hct 35.9 L (37.2-46.3) % Immature Gran # 0.09 H (0.00-0.04) 10*3/uL Neutrophils # 13.14 H (1.80-7.70) 10*3/uL Lymphocytes # 0.50 L (0.90-5.00) 10*3/uL Potassium 3.3 L (3.5-5.1) mmol/L BUN 22 H (7-17) mg/dL Glucose 108 H (74-99) mg/dL C-Reactive Protein 21.6 H (<1.0) mg/dL Total Protein 6.1 L (6.3-8.2) g/dL Assessment and Plan Assessment: Left upper extremity cellulitis Melanoma of the left upper extremity status post recent excisional biopsy Hypertension Plan: Continue with antibiotic IV vancomycin and cefepime Continue with IV hydration Infectious disease consult Follow-up skin biopsy result Labs and medication were reviewed.. Continue same treatment. Continue with symptomatic treatment. Resume home medication. Monitor labs and vitals. DVT and GI prophylaxis. Further recommendations as per clinical course of the patient DVT prophylaxis: Subcutaneous heparin GI Prophylaxis: Pepcid Prognosis is guarded
[2024-10-26 15:20] LABS: Erythrocyte Sedimentation Rate 33 mm/Hr (0-30)
[2024-10-26] MEDS: CEFEPIME 1 GM in SODIUM CHLORIDE 0.9% 50 ML IVPB SCH (16:02)
[2024-10-26] MEDS: HYDROcodone/APAP 5-325MG 1 EACH TAB PO PRN (16:05)
[2024-10-26 17:41] VITALS: RESP 16
[2024-10-26] MEDS: ONDANSETRON 4 MG/2 ML VIAL IVP PRN (20:23)
[2024-10-26] MEDS: HEPARIN SODIUM,PORCINE 5,000 UNIT/ML 1 ML VIAL SQ SCH (20:25)
--- NOTE | 2024-10-26 22:53 | P.CONS ---
History of Present Illness - Reason for Consult Consult date: 10/26/24 Left upper extremity cellulitis Requesting physician: Jaylene Saravia - Chief Complaint Left upper extremity pain swelling redness x 2 days - History of Present Illness Patient is a 74-year-old female with a past medical history taken for hypertension reflux colitis she recently did have a melanoma resection from the left upper extremity, 3 days ago patient subsequently started having increasing swelling and redness to the left upper extremity for the patient was started on oral Keflex yesterday however the patient did have worsening symptoms she presented to the hospital patient complaining of pain and swelling as well as redness to the left upper extremity patient described the pain to be sharp moderate intensity without radiation with associated swelling redness and did have some purulent drainage patient denies high-grade fever and no fevers recor ded on presentation to the hospital patient was not tachycardic hypotensive or hypoxic she did have white count of 14.78 with a left shift creatinine 0.95 potassium was 3.3 liver enzymes are normal CRP is elevated patient did have a blood and local cultures obtained patient was started on vancomycin infectious disease was consulted for further management of antibiotic therapy Review of Systems Positive point and negatives has been mentioned in the HPI, complete review of systems was performed and all other systems are negative Past Medical History Past Medical History: Cancer, GERD/Reflux, Hypertension Additional Past Medical History / Comment(s): HX OF colitis, HX SKIN CA, History of Any Multi-Drug Resistant Organisms: None Reported Past Surgical History: No Surgical Hx Reported Past Anesthesia/Blood Transfusion Reactions: No Reported Reaction Past Psychological History: No Psychological Hx Reported Smoking Status: Never smoker Past Alcohol Use History: None Reported Past Drug Use History: None Reported - Past Family History Father Family Medical History: CVA/TIA Medications and Allergies Home Medications Medication Instructions Recorded Confirmed Type Famotidine [Pepcid] 20 mg PO BID 10/26/24 10/26/24 History Losartan Potassium [Cozaar] 100 mg PO DAILY 10/26/24 10/26/24 History Verapamil HCl [Verapamil ER] 180 mg PO DAILY 10/26/24 10/26/24 History Allergies Allergy/AdvReac Type Severity Reaction Status Date / Time fentanyl AdvReac Nausea & Verified 10/26/24 10:11 Vomiting Physical Exam Vitals: Vital Signs Temp Pulse Resp BP Pulse Ox 10/26/24 14:43 60 18 104/56 100 10/26/24 13:38 16 10/26/24 12:27 62 17 118/55 94 L 10/26/24 10:51 71 19 97 10/26/24 10:32 64 17 133/67 98 10/26/24 09:59 18 10/26/24 09:00 72 18 135/66 97 10/26/24 07:40 98.3 F 72 20 136/74 99 Intake and Output 10/26/24 10/26/24 10/26/24 06:59 14:59 22:59 Other: Weight 54.431 kg GENERAL DESCRIPTION: Elderly female lying in bed, no distress. No tachypnea or accessory muscle of respiration use. HEENT: Shows Pallor , no scleral icterus. Oral mucous membrane is dry. NECK: Trachea central, no thyromegaly. LUNGS: Unlabored breathing. Clear to auscultation anteriorly. No wheeze or crackle. HEART: S1, S2, regular rate and rhythm. No loud murmur ABDOMEN: Soft, no tenderness , guarding or rigidity, no organomegaly EXTREMITIES: Left upper extremity with diffuse swelling and redness that did have some purulent drainage SKIN: No rash, no masses palpable. NEUROLOGICAL: The patient is awake, alert, oriented x3, mood and affect normal. Results CBC & Chem 7: 10/26/24 08:35 10/26/24 08:35 Labs: Abnormal Lab Results - Last 24 Hours (Table) 10/26/24 10/26/24 Range/Units 08:35 08:35 WBC 14.78 H (4.50-10.00) 10*3/uL RBC 3.99 L (4.10-5.20) 10*6/uL Hct 35.9 L (37.2-46.3) % Immature Gran # 0.09 H (0.00-0.04) 10*3/uL Neutrophils # 13.14 H (1.80-7.70) 10*3/uL Lymphocytes # 0.50 L (0.90-5.00) 10*3/uL Potassium 3.3 L (3.5-5.1) mmol/L BUN 22 H (7-17) mg/dL Glucose 108 H (74-99) mg/dL C-Reactive Protein 21.6 H (<1.0) mg/dL Total Protein 6.1 L (6.3-8.2) g/dL Assessment and Plan (1) Abscess of left upper extremity Current Visit: Yes Status: Acute Code(s): L02.414 - CUTANEOUS ABSCESS OF LEFT UPPER LIMB SNOMED Code(s): 01512992563665221 (2) Leukocytosis Current Visit: Yes Status: Acute Code(s): D72.829 - ELEVATED WHITE BLOOD CELL COUNT, UNSPECIFIED SNOMED Code(s): 150756520 (3) Left arm cellulitis Current Visit: Yes Status: Acute Code(s): L03.114 - CELLULITIS OF LEFT UPPER LIMB SNOMED Code(s): 50193487273478133 (4) Postoperative cellulitis of surgical wound Current Visit: Yes Status: Acute Code(s): T81.49XA - INFECTION FOLLOWING A PROCEDURE, OTHER SURGICAL SITE, INIT SNOMED Code(s): 493947895 Plan: 1patient presented the hospital with left upper extremity pain swelling and redness in this patient who did have a recent melanoma resection from the left upper extremity now with concerning for cellulitis and an abscess patient did chambers ve a CT which shows soft tissue thickening and edema but did not mention any abscess however clinically she did have purulent drainage that has been suggestive of abscess will need to cover for the gram-positive as well as gram- negative pathogen failing outpatient oral Keflex therapy 2-blood and local culture have been obtained results will be followed 3-she will be empirically treated with vancomycin pharmacy to dose and will add cefepime while waiting for the culture to finalize Question concern answered We will follow on clinical condition and cultures to further adjust medication if needed Thank you for this consultation we will follow the patient along with you Dictation was produced using [employer] dictation software. please excuse any grammatical, word or spelling errors. Time with Patient: Greater than 30
[2024-10-26] MEDS: CEFEPIME 2 GM in SODIUM CHLORIDE 0.9% 100 ML IVPB SCH (23:54)
[2024-10-27] MEDS ORDERED: CEFEPIME 2 GM in SODIUM CHLORIDE 0.9% 50 ML IVPB SCH
[2024-10-27 07:29] LABS: Basophils # (A) 0.02 10*3/uL (0.00-0.10); Basophils % (A) 0.2 %; Eosinophils # (A) 0.28 10*3/uL (0.04-0.35); Eosinophils % (A) 3.5 %; HCT 36.2 % (37.2-46.3); HGB 11.6 g/dL (12.0-15.0); Lymphocytes # (A) 0.95 10*3/uL (0.90-5.00); Lymphocytes % (A) 11.8 %; MCH 29.8 pg (27.0-32.0); MCV 93.1 fL (80.0-97.0); Mean Platelet Volume 11.1 fL (9.5-12.2); Monocytes # (A) 0.54 10*3/uL (0.20-1.00); Monocytes % (A) 6.7 %; Neutrophils # (A) 6.24 10*3/uL (1.80-7.70); Neutrophils % (A) 77.4 %; Platelet Count 191 10*3/uL (140-440); RBC 3.89 10*6/uL (4.10-5.20); RDW 13.4 % (11.5-14.5); WBC 8.06 10*3/uL (4.50-10.00)
[2024-10-27 07:54] LABS: African American GFR (CKD) >90 (>60 ml/min/1.73 sqM); Anion Gap 6 mmol/L; Blood Urea Nitrogen 19 mg/dL (7-17); Calcium 8.2 mg/dL (8.4-10.2); Carbon Dioxide 23 mmol/L (22-30); Chloride 111 mmol/L (98-107); Glucose 89 mg/dL (74-99); Non-African American GFR(CKD) 78 (>60 ml/min/1.73 sqM); Potassium 3.5 mmol/L (3.5-5.1); Sodium 140 mmol/L (137-145)
[2024-10-27] MEDS: VANCOMYCIN 1,000 MG in SODIUM CHLORIDE 0.9% 250 ML IVPB SCH (09:03)
[2024-10-27] MEDS: FAMOTIDINE 20 MG TAB PO SCH (09:04)
[2024-10-27] MEDS: VERAPAMIL SR 180 MG TABLET.ER PO SCH (09:04)
[2024-10-27] MEDS: LOSARTAN 50 MG TAB PO SCH (09:07)
--- NOTE | 2024-10-27 19:50 | P.PN ---
Subjective This is a pleasant 74 years old female with past medical history of multiple medical problems as below Presents because of left arm swelling and redness after she had excisional biopsy of her left arm melanoma with her physician office assistant Dr. Sanchez No chest pain or dyspnea. No specific GI/ symptoms. No smoking alcohol illicit drugs. She is hemodynamically stable afebrile Labs unremarkable except for mild leukocytosis of 14.7 CT of the left upper extremity showing soft tissue swelling and thickening and edema within the right forearm with no underlying osteomyelitis. Patient was started on antibiotics and admitted with ID team consult 10/27 Patient with left arm cellulitis after melanoma removed I am still inflamed tender and red, may be slightly less, dressing in place Leukocytosis improved a 14 down to 8.0 today hemoglobin 11.6. Remains on IV vancomycin and cefepime normal sinus 75 mL/h Review of systems CONSTITUTIONAL: No fever, no malaise, no fatigue. HEENT: No recent visual problems or hearing problems. Denied any sore throat. CARDIOVASCULAR: No orthopnea, PND, no palpitations, no syncope. PULMONARY: No shortness of breath, no cough, no hemoptysis. GASTROINTESTINAL: No diarrhea, no nausea, no vomiting, no abdominal pain. Normoactive bowel sounds. NEUROLOGICAL: No headaches, no weakness, no numbness. HEMATOLOGICAL: Denies any bleeding or petechiae. Active Medications Generic Name Dose Route Start Last Admin Trade Name Freq PRN Reason Stop Dose Admin Acetaminophen 650 mg 10/26/24 10:21 Acetaminophen Tab 325 Mg Tab PO Q6HR PRN Mild Pain or Fever > 100.5 Hydrocodone Bitart/Acetaminophen 1 each 10/26/24 10:21 10/26/24 16:05 Hydrocodone/Apap 5-325mg 1 Each Tab PO 1 each Q4HR PRN Administration Moderate Pain (Scale 4 to 6) Famotidine 20 mg 10/27/24 09:00 10/27/24 09:04 Famotidine 20 Mg Tab PO 20 mg DAILY JOSEPHINE Administration Guaifenesin/Dextromethorphan 10 ml 10/27/24 19:48 Guaifenesin-Dm 100-10mg/5ml 10 Ml Cup PO Q6HR PRN Cough Heparin Sodium (Porcine) 5,000 unit 10/26/24 21:00 10/27/24 09:04 Heparin Sodium,Porcine 5,000 Unit/Ml 1 Ml Vial SQ 5,000 unit Q12HR JOSEPHINE Administration Sodium Chloride 1,000 mls @ 75 mls/hr 10/26/24 10:30 10/27/24 16:24 Saline 0.9% IV 75 mls/hr .[id number] JOSEPHINE Administration Vancomycin HCl 1,000 mg/ 250 mls @ 125 mls/hr 10/27/24 08:00 10/27/24 09:03 Sodium Chloride IVPB 125 mls/hr Q24H JOSEPHINE Administration Cefepime HCl 2 gm/ Sodium 100 mls @ 25 mls/hr 10/27/24 00:00 10/27/24 12:03 Chloride IVPB 25 mls/hr Q12H JOSEPHINE Administration Ketorolac Tromethamine 15 mg 10/26/24 10:21 Ketorolac 15 Mg/Ml 1 Ml Vial IVP 10/29/24 10:22 Q6HR PRN Moderate Pain (Scale 4 to 6) Losartan Potassium 100 mg 10/27/24 09:00 10/27/24 09:07 Losartan 50 Mg Tab PO 100 mg DAILY JOSEPHINE Administration Miscellaneous Information 1 each 10/26/24 08:26 Rx Info: Iv Contrast Was Given 1 Each [facility] [place] MISCELLANE 10/28/24 08:27 DAILY PRN Per Protocol Miscellaneous Information 1 each 10/29/24 07:00 [facility] ONCE ONE Morphine Sulfate 4 mg 10/26/24 10:21 Morphine Sulfate 4 Mg/Ml Syringe IV Q4HR PRN Severe Pain (Scale 7 to 10) Naloxone HCl 0.2 mg 10/26/24 10:21 Naloxone 0.4 Mg/Ml 1 Ml Vial IV Q2M PRN Opioid Reversal Ondansetron HCl 4 mg 10/26/24 10:21 10/27/24 09:37 Ondansetron 4 Mg/2 Ml Vial IVP 4 mg Q8HR PRN Administration Nausea And Vomiting Verapamil HCl 180 mg 10/27/24 09:00 10/27/24 09:04 Verapamil Sr 180 Mg Tablet.Er PO 180 mg DAILY JOSEPHINE Administration Objective - Vital Signs Vital signs: Vital Signs Temp 97.7 F 10/27/24 08:00 Pulse 73 10/27/24 08:00 Resp 16 10/27/24 08:00 BP 145/76 10/27/24 10:37 Pulse Ox 97 10/27/24 08:00 FiO2 Intake & Output 10/26/24 10/27/24 10/27/24 18:59 06:59 18:59 Intake Total 480 120 Balance 480 120 Weight 54.431 kg Intake: Oral 480 120 Other: Voiding Method Toilet # Voids 1 - Exam GENERAL: The patient is alert and oriented x3, not in any acute distress. Well developed, well nourished. HEENT: Pupils are round and equally reacting to light. EOMI. No scleral icterus. No conjunctival pallor. Normocephalic, atraumatic. No pharyngeal erythema. No thyromegaly. CARDIOVASCULAR: S1 and S2 present. No murmurs, rubs, or gallops. PULMONARY: Chest is clear to auscultation, no wheezing , no crackles. ABDOMEN: Soft, nontender, nondistended, normoactive bowel sounds. No palpable organomegaly. MUSCULOSKELETAL: No joint swelling or deformity. -EXTREMITIES: No cyanosis, clubbing, or pedal edema. Left upper extremity cellulitis with dressing in place, surgical wound is closed and is healing. No purulent discharge NEUROLOGICAL: Gross neurological examination did not reveal any focal deficits. SKIN: No rashes. no petechiae. - Labs CBC & Chem 7: 10/27/24 07:00 10/27/24 07:00 Labs: Abnormal Lab Results - Last 24 Hours (Table) 10/26/24 10/27/24 10/27/24 Range/Units 08:35 07:00 07:00 RBC 3.89 L (4.10-5.20) 10*6/uL Hgb 11.6 L (12.0-15.0) g/dL Hct 36.2 L (37.2-46.3) % ESR 33 H (0-30) mm/Hr Chloride 111 H (98-107) mmol/L BUN 19 H (7-17) mg/dL Calcium 8.2 L (8.4-10.2) mg/dL Microbiology - Last 24 Hours (Table) 10/26/24 08:35 Gram Stain - Preliminary Arm - Left Assessment and Plan Assessment: Left upper extremity cellulitis Melanoma of the left upper extremity status post recent excisional biopsy Hypertension Plan: Continue with antibiotic IV vancomycin and cefepime Continue with IV hydration Infectious disease consult Follow-up skin biopsy result Labs and medication were reviewed.. Continue same treatment. Continue with symptomatic treatment. Resume home medication. Monitor labs and vitals. DVT and GI prophylaxis. Further recommendations as per clinical course of the patient DVT prophylaxis: Subcutaneous heparin GI Prophylaxis: Pepcid Prognosis is guarded
--- NOTE | 2024-10-27 20:30 | P.PN ---
Subjective Progress Note Date: 10/27/24 Principal diagnosis: Reason for follow-up is left upper extremity abscess and cellulitis Patient is a 74-year-old female with a past medical history taken for hypertension reflux colitis she recently did have a melanoma resection from the left upper extremity, subsequent whelping increasing swelling redness and drainage to the left upper extremity concerning for cellulitis/abscess CT however did not show any drainable abscess. On today's evaluation that is 10/28/2023, patient did have a temperature of 97.7 F this morning and denies having any chills, patient is on room air and breathing comfortably no chest pain however is complaining of dry irritating cough, the patient did not have any nausea vomiting abdominal pain or any diarrhea, pain to the left upper extremity is controlled. Patient white count normalized to 8.06, creatinine 0.75 blood cultures pending local culture with presumptive Staph aureus Objective - Vital Signs Vital signs: Vital Signs Temp 98.2 F 10/27/24 12:29 Pulse 80 10/27/24 12:29 Resp 16 10/27/24 12:29 BP 160/77 10/27/24 12:29 Pulse Ox 100 10/27/24 12:29 FiO2 Intake & Output 10/26/24 10/27/24 10/27/24 18:59 06:59 18:59 Intake Total 480 1860 Balance 480 1860 Weight 54.431 kg Intake: Oral 480 1860 Other: Voiding Method Toilet # Voids 1 6 - Exam GENERAL DESCRIPTION: An elderly female lying in bed in no distress RESPIRATORY SYSTEM: Unlabored breathing , decreased breath sounds at bases HEART: S1 S2 regular rate and rhythm , ABDOMEN: Soft , no tenderness EXTREMITIES: Left upper extremity is currently dressed no drainage on the dressing - Labs CBC & Chem 7: 10/27/24 07:00 10/27/24 07:00 Labs: Abnormal Lab Results - Last 24 Hours (Table) 10/27/24 10/27/24 Range/Units 07:00 07:00 RBC 3.89 L (4.10-5.20) 10*6/uL Hgb 11.6 L (12.0-15.0) g/dL Hct 36.2 L (37.2-46.3) % Chloride 111 H (98-107) mmol/L BUN 19 H (7-17) mg/dL Calcium 8.2 L (8.4-10.2) mg/dL Microbiology - Last 24 Hours (Table) 10/26/24 08:35 Blood Culture - Preliminary Blood 10/26/24 08:35 Gram Stain - Preliminary Arm - Left Wound Culture - Preliminary Presumptive Staph aureus Assessment and Plan (1) Abscess of left upper extremity Current Visit: Yes Status: Acute Code(s): L02.414 - CUTANEOUS ABSCESS OF LEFT UPPER LIMB SNOMED Code(s): 04707445357793361 (2) Leukocytosis Current Visit: Yes Status: Acute Code(s): D72.829 - ELEVATED WHITE BLOOD CELL COUNT, UNSPECIFIED SNOMED Code(s): 505603331 (3) Left arm cellulitis Current Visit: Yes Status: Acute Code(s): L03.114 - CELLULITIS OF LEFT UPPER LIMB SNOMED Code(s): 22455617132993742 (4) Postoperative cellulitis of surgical wound Current Visit: Yes Status: Acute Code(s): T81.49XA - INFECTION FOLLOWING A PROCEDURE, OTHER SURGICAL SITE, INIT SNOMED Code(s): 046751122 Plan: 1patient presented the hospital with left upper extremity pain swelling and redness in this patient who did have a recent melanoma resection from the left u pper extremity now with concerning for cellulitis and an abscess patient did have a CT which shows soft tissue thickening and edema but did not mention any abscess however clinically she did have purulent drainage that has been suggestive of abscess will need to cover for the gram-positive as well as gram- negative pathogen failing outpatient oral Keflex therapy 2-blood and local culture have been obtained which are currently pending 3-patient currently being treated with vancomycin pharmacy to dose and cefepime while waiting for the culture to finalize Question concern answered Dictation was produced using [employer] dictation software. please excuse any grammatical, word or spelling errors. Time with Patient: Less than 30
[2024-10-27] MEDS: guaiFENesin-DM 100-10MG/5ML 10 ML CUP PO PRN (21:32)
[2024-10-28 06:31] LABS: African American GFR (CKD) >90 (>60 ml/min/1.73 sqM); Non-African American GFR(CKD) 81 (>60 ml/min/1.73 sqM)
[2024-10-28] MEDS ORDERED: METOCLOPRAMIDE 5 MG/ML 2 ML VIAL IVP PRN (10:42)
--- NOTE | 2024-10-28 15:13 | P.PN ---
Subjective Progress Note Date: 10/28/24 Principal diagnosis: Reason for follow-up is left upper extremity abscess and cellulitis Patient is a 74-year-old female with a past medical history taken for hypertension reflux colitis she recently did have a melanoma resection from the left upper extremity, subsequent whelping increasing swelling redness and drainage to the left upper extremity concerning for cellulitis/abscess CT however did not show any drainable abscess. On today's evaluation that is 10/28/2024, Patient is afebrile patient is currently on room air and denies having any shortness of breath, the patient denies any chest pain or cough, the patient denies any nausea vomiting did not have any abdominal pain and no diarrhea patient pain in the left upper extremity has decreased in intensity. Did have a creatinine 0.73, her local culture with MSSA blood culture have been negative so far Objective - Vital Signs Vital signs: Vital Signs Temp 98.0 F 10/28/24 12:32 Pulse 61 10/28/24 12:32 Resp 16 10/28/24 12:32 BP 129/76 10/28/24 12:32 Pulse Ox 100 10/28/24 12:32 FiO2 Intake & Output 10/27/24 10/28/24 10/28/24 18:59 06:59 18:59 Intake Total 2100 240 Balance 2100 240 Intake: Oral 2100 240 Other: Voiding Method Toilet # Voids 6 3 - Exam GENERAL DESCRIPTION: An elderly female lying in bed in no distress RESPIRATORY SYSTEM: Unlabored breathing , decreased breath sounds at bases HEART: S1 S2 regular rate and rhythm , ABDOMEN: Soft , no tenderness EXTREMITIES: Left upper extremity swelling and redness has decreased minimal drainage on the dressing - Labs CBC & Chem 7: 10/27/24 07:00 10/28/24 05:07 Labs: Microbiology - Last 24 Hours (Table) 10/26/24 08:35 Gram Stain - Final Arm - Left Wound Culture - Final Staphylococcus aureus 10/26/24 08:35 Blood Culture - Preliminary Blood Assessment and Plan (1) Abscess of left upper extremity Current Visit: Yes Status: Acute Code(s): L02.414 - CUTANEOUS ABSCESS OF LEFT UPPER LIMB SNOMED Code(s): 34412703741190753 (2) Leukocytosis Current Visit: Yes Status: Acute Code(s): D72.829 - ELEVATED WHITE BLOOD CELL COUNT, UNSPECIFIED SNOMED Code(s): 011171140 (3) Left arm cellulitis Current Visit: Yes Status: Acute Code(s): L03.114 - CELLULITIS OF LEFT UPPER LIMB SNOMED Code(s): 36248261275747731 (4) Postoperative cellulitis of surgical wound Current Visit: Yes Status: Acute Code(s): T81.49XA - INFECTION FOLLOWING A PROCEDURE, OTHER SURGICAL SITE, INIT SNOMED Code(s): 129304153 Plan: 1patient presented the hospital with left upper extremity pain swelling and redness in this patient who did have a recent melanoma resection from the left upper extremity now with concerning for cellulitis and an abscess patient did have a CT which shows soft tissue thickening and edema but did not mention any abscess however clinically she did have purulent drainage that has been suggestive of abscess will need to cover for the gram-positive as well as gram- negative pathogen failing outpatient oral Keflex therapy 2-blood culture have been negative and local culture growing MSSA 3-vancomycin has been discontinued patient started on cefazolin if continue to improve will finish therapy with oral Keflex multiple questions and concerns were answered in Layman terms Dictation was produced using [employer] dictation software. please excuse any gramma tical, word or spelling errors. Time with Patient: Less than 30
[2024-10-28] MEDS: ceFAZolin 2 GM in DEXTROSE 5% IN WATER 50 ML IVPB SCH (15:39)
[2024-10-28] MEDS: MELATONIN 3 MG TABLET PO SCH (20:43)
--- NOTE | 2024-10-29 05:54 | P.PN ---
Subjective This is a pleasant 74 years old female with past medical history of multiple medical problems as below Presents because of left arm swelling and redness after she had excisional biopsy of her left arm melanoma with her pie bakery laborer Dr. Sanchez No chest pain or dyspnea. No specific GI/ symptoms. No smoking alcohol illicit drugs. She is hemodynamically stable afebrile Labs unremarkable except for mild leukocytosis of 14.7 CT of the left upper extremity showing soft tissue swelling and thickening and edema within the right forearm with no underlying osteomyelitis. Patient was started on antibiotics and admitted with ID team consult 10/27 Patient with left arm cellulitis after melanoma removed I am still inflamed tender and red, may be slightly less, dressing in place Leukocytosis improved a 14 down to 8.0 today hemoglobin 11.6. Remains on IV vancomycin and cefepime normal sinus 75 mL/h 10/28 Patient found still some pain and swelling in her right arm, compression sleeve in place Patient continued with normal saline 50 mL/h and cefazolin. While IV vancomycin was discontinued Wound culture s is growing MSSA Objective - Vital Signs Vital signs: Vital Signs Temp 98.5 F 10/28/24 07:28 Pulse 77 10/28/24 07:28 Resp 16 10/28/24 07:28 BP 173/81 10/28/24 07:28 Pulse Ox 97 10/28/24 07:28 FiO2 Intake & Output 10/27/24 10/28/24 10/28/24 18:59 06:59 18:59 Intake Total 2100 240 Balance 2100 240 Intake: Oral 2100 240 Other: Voiding Method Toilet # Voids 6 3 - Exam GENERAL: The patient is alert and oriented x3, not in any acute distress. Well developed, well nourished. HEENT: Pupils are round and equally reacting to light. EOMI. No scleral icterus. No conjunctival pallor. Normocephalic, atraumatic. No pharyngeal erythema. No thyromegaly. CARDIOVASCULAR: S1 and S2 present. No murmurs, rubs, or gallops. PULMONARY: Chest is clear to auscultation, no wheezing , no crackles. ABDOMEN: Soft, nontender, nondistended, normoactive bowel sounds. No palpable or ganomegaly. MUSCULOSKELETAL: No joint swelling or deformity. -EXTREMITIES: No cyanosis, clubbing, or pedal edema. Left upper extremity cellulitis with dressing in place, surgical wound is closed and is healing. No purulent discharge NEUROLOGICAL: Gross neurological examination did not reveal any focal deficits. SKIN: No rashes. no petechiae. - Labs CBC & Chem 7: 10/27/24 07:00 10/28/24 05:07 Labs: Microbiology - Last 24 Hours (Table) 10/26/24 08:35 Gram Stain - Final Arm - Left Wound Culture - Final Staphylococcus aureus 10/26/24 08:35 Blood Culture - Preliminary Blood Assessment and Plan Assessment: Left upper extremity cellulitis Melanoma of the left upper extremity status post recent excisional biopsy Hypertension Plan: Continue with antibiotic IV cefazolin Continue with IV hydration Infectious disease consult Follow-up skin biopsy result Labs and medication were reviewed.. Continue same treatment. Continue with symptomatic treatment. Resume home medication. Monitor labs and vitals. DVT and GI prophylaxis. Further recommendations as per clinical course of the patient DVT prophylaxis: Subcutaneous heparin GI Prophylaxis: Pepcid Prognosis is guarded
[2024-10-29] MEDS ORDERED: VANCOMYCIN TROUGH DUE 1 EACH MISC MISCELLANE ONE (07:00)
--- NOTE | 2024-10-29 11:15 | P.CONS ---
History of Present Illness - Reason for Consult Consult date: 10/29/24 wound care - History of Present Illness This is a 74-year-old patient being seen on [address] for a surgical wound infection. Patient states that the redness and edema has improved continuing to have drainage. Patient has a dehisced incision to the left upper arm measuring approximately 4 x 0.2 x 0.2 with serous drainage from the site. Review Of Systems: Constitutional: No fever, no chills, no night sweats. No weight change. No weakness, fatigue or lethargy. No daytime sleepiness. Integumentary:reports wounds, no lesions. No rash or pruritus. No unusual bruising. No change in hair or nails. Physical exam: General Appearance: Alert, cooperative, no distress, appears stated age. Skin: See HPI all other Skin color, texture, tugor normal, no rashes or lesions. Neurologic: Alert oriented x3 Assessment: 1. Nonhealing ulceration limited to skin breakdown other site 2. Surgical wound dehiscence Plan: 1. Apply absorptive silver dry, dry gauze rolled gauze and secure with paper tape. Thank you for the consultation any questions please contact the wound care center DNP note has been reviewed and discussed with Dr. Rawls and the impression and plan of care has been directed as dictated. Past Medical History Past Medical History: Cancer, GERD/Reflux, Hypertension Additional Past Medical History / Comment(s): HX OF colitis, HX SKIN CA, History of Any Multi-Drug Resistant Organisms: None Reported Past Surgical History: No Surgical Hx Reported Past Anesthesia/Blood Transfusion Reactions: No Reported Reaction Past Psychological History: No Psychological Hx Reported Smoking Status: Never smoker Past Alcohol Use History: None Reported Past Drug Use History: None Reported - Past Family History Father Family Medical History: CVA/TIA Medications and Allergies Home Medications Medication Instructions Recorded Confirmed Type Famotidine [Pepcid] 20 mg PO BID 10/26/24 10/26/24 History Losartan Potassium [Cozaar] 100 mg PO DAILY 10/26/24 10/26/24 History Verapamil HCl [Verapamil ER] 180 mg PO DAILY 10/26/24 10/26/24 History Allergies Allergy/AdvReac Type Severity Reaction Status Date / Time fentanyl AdvReac Nausea & Verified 10/26/24 10:11 Vomiting Physical Exam Vitals: Vital Signs Temp Pulse Resp BP Pulse Ox 10/29/24 07:10 98.4 F 73 16 170/85 97 10/29/24 01:43 98.5 F 81 16 139/77 96 10/28/24 20:00 16 10/28/24 19:53 98.8 F 70 16 157/69 99 10/28/24 12:32 98.0 F 61 16 129/76 100 Intake and Output 10/28/24 10/29/24 10/29/24 22:59 06:59 14:59 Intake Total 1500 240 Balance 1500 240 Intake: Oral 1500 240 Other: Voiding Method Toilet # Voids 0 3 # Bowel Movements 0 Results CBC & Chem 7: 10/27/24 07:00 10/28/24 05:07 Labs: Microbiology - Last 24 Hours (Table) 10/26/24 08:35 Blood Culture - Preliminary Blood 10/26/24 08:35 Anaerobic Culture - Preliminary Arm - Left 10/26/24 08:35 Gram Stain - Final Arm - Left Wound Culture - Final Staphylococcus aureus Assessment and Plan (1) Non-pressure chronic ulcer of skin of other sites limited to breakdown of skin Current Visit: Yes Status: Acute Code(s): L98.491 - NON-PRS CHRONIC ULCER SKIN/ SITES LIMITED TO BRKDWN SKIN SNOMED Code(s): 24866143 (2) Disruption or dehiscence of closure of other specified internal operation (surgical) wound, initial encounter Current Visit: Yes Status: Acute Code(s): T81.328A - DISRUPT/DEHISC OF CLOSURE OF OTH INT OP (SURG) WOUND, INIT SNOMED Code(s): 89482212
[2024-10-29 11:26] VITALS: PULSE 71; TEMP 98.5
[2024-10-29 11:40] VITALS: BP 163/80
--- NOTE | 2024-10-30 08:48 | P.DS ---
Providers Date of admission: 10/26/24 10:54 Expected date of discharge: 10/29/24 Attending physician: French Cohen MD Consults: 10/26/24 10:21 Consult Physician Urgent Consulting Provider: Rogers Lizarraga Consult Reason/Comments: Left upper extremity cellulitis Do you want consulting provider notified?: Yes Primary care physician: Sushil Walker Hospital Course: Final diagnosis Left upper extremity cellulitis Melanoma of the left upper extremity status post recent excisional biopsy Hypertension History of colitis GERD GI prophylaxis DVT prophylaxis Full code Discharge disposition Patient is being discharged in a stable condition with guarded prognosis to home. Patient will follow-up with Dr. Sushil Walker in the outpatient setting upon discharge. Patient is to continue with oral antibiotics in the form of Keflex 4 times daily for the next 10 days and close outpatient follow-up with infectious disease as scheduled. Total time taken is greater than 35 minutes. Hospital course This is a 74-year-old female who was recently admitted with left upper extremity cellulitis, present on admission with melanoma of the left upper extremity status post excisional biopsy. Patient being followed with infectious disease maintained on antibiotics showing clinical improvement on cefazolin and will be transition to oral Keflex 500 mg 4 times daily for 10-day course. Culture is showing Staphylococcus aureus and blood cultures remain negative. Patient is afebrile reports significant improvement and extremely anxious to go home. Patient has been cleared by infectious disease recommending outpatient follow-up and continued wound care. Currently no reports of chest pain, shortness of breath, or palpitations. Patient is afebrile. No reports of nausea or vomiting and patient is tolerating diet. Patient will be discharged home today. Guarded prognosis Physical exam: Gen: This is a pleasant 74-year-old female who is awake, alert and oriented x 3, well-developed, well-nourished, elderly appearing HEENT: Head is atraumatic, normocephalic. Pupils equal, round. Sclerae is anicteric. NECK: Supple. No JVD. No lymphadenopathy. No thyromegaly. LUNGS: Diminished breath sounds bilaterally otherwise clear to auscultation. No wheezes or rhonchi. No intercostal retractions. HEART: S1, S2 are muffled ABDOMEN: Soft. Bowel sounds are present. No masses. No tenderness. EXTREMITIES: No pedal edema. No calf tenderness. Left upper extremity swelling significantly improved and dressing is currently dry and intact NEUROLOGICAL: Patient is awake, alert and oriented x3. Cranial nerves 2 through 12 are grossly intact. Please refer to medication reconciliation sheet for a list of medications. The impression and plan of care has been dictated by Khloe Read, Nurse Practitioner as directed. Dr. Cristopher MD I have performed a history and examination and MDM of this patient, discussed the same with the dictator, and agree with the dictator's assessment and plan as written ,documented as a scribe. Based on total visit time, I have performed more than 50% of the visit. Patient Condition at Discharge: Stable Plan - Discharge Summary New Discharge Prescriptions: New Cephalexin [Keflex] 500 mg PO Q6HR 10 Days #40 cap Acetaminophen Tab [Tylenol] 650 mg PO Q6HR PRN tab PRN Reason: Mild Pain Or Fever > 100.5 Continue Verapamil HCl [Verapamil ER] 180 mg PO DAILY Losartan Potassium [Cozaar] 100 mg PO DAILY Famotidine [Pepcid] 20 mg PO BID Discharge Medication List Famotidine [Pepcid] 20 mg PO BID 10/26/24 [History] Losartan Potassium [Cozaar] 100 mg PO DAILY 10/26/24 [History] Verapamil HCl [Verapamil ER] 180 mg PO DAILY 10/26/24 [History] Acetaminophen Tab [Tylenol] 650 mg PO Q6HR PRN tab 10/29/24 [Rx] Cephalexin [Keflex] 500 mg PO Q6HR 10 Days #40 cap 10/29/24 [Rx] Follow up Appointment(s)/Referral(s): [facility], [NON-STAFF] - 1 Week Rogers Lizarraga MD [STAFF PHYSICIAN] - 1 Week Sushil Walker MD [Primary Care Provider] - 1-2 days Patient Instructions/Handouts: Cephalexin (By mouth) Activity/Diet/Wound Care/Special Instructions: Activity until follow-up Follow-up with primary care provider discharge Continue taking medications as prescribed Follow-up with infectious disease outpatient Continue local wound care. Discharge Disposition: HOME SELF-CARE
--- NOTE | 2024-10-30 14:45 | P.PN ---
Subjective Progress Note Date: 10/29/24 Principal diagnosis: Reason for follow-up is left upper extremity abscess and cellulitis Patient is a 74-year-old female with a past medical history taken for hypertension reflux colitis she recently did have a melanoma resection from the left upper extremity, subsequent whelping increasing swelling redness and drainage to the left upper extremity concerning for cellulitis/abscess CT however did not show any drainable abscess. On today's evaluation that is 10/29/2024, patient has been afebrile, patient is breathing comfortably and is currently on room air, patient denies having any chest pain and cough, patient denies nausea vomiting or diarrhea and no abdomina l pain pain to the left lower extremity has decreased in intensity. No new lab has been obtained today culture with MSSA blood culture negative Objective - Vital Signs Vital signs: Vital Signs Temp 98.5 F 10/29/24 11:25 Pulse 71 10/29/24 11:25 Resp 16 10/29/24 11:25 BP 180/78 10/29/24 11:25 Pulse Ox 98 10/29/24 11:25 FiO2 Intake & Output 10/28/24 10/29/24 10/29/24 18:59 06:59 18:59 Intake Total 0 240 Balance 0 240 Intake: Oral 2039 240 Other: Voiding Method Toilet # Voids 5 3 # Bowel Movements 4 0 - Exam GENERAL DESCRIPTION: An elderly female lying in bed in no distress RESPIRATORY SYSTEM: Unlabored breathing , decreased breath sounds at bases HEART: S1 S2 regular rate and rhythm , ABDOMEN: Soft , no tenderness EXTREMITIES: Left upper extremity swelling and redness has decreased no drainage - Labs CBC & Chem 7: 10/27/24 07:00 10/28/24 05:07 Labs: Microbiology - Last 24 Hours (Table) 10/26/24 08:35 Blood Culture - Preliminary Blood 10/26/24 08:35 Anaerobic Culture - Preliminary Arm - Left 10/26/24 08:35 Gram Stain - Final Arm - Left Wound Culture - Final Staphylococcus aureus Assessment and Plan (1) Abscess of left upper extremity Status: Acute Code(s): L02.414 - CUTANEOUS ABSCESS OF LEFT UPPER LIMB SNOMED Code(s): 26719921916081446 (2) Leukocytosis Status: Acute Code(s): D72.829 - ELEVATED WHITE BLOOD CELL COUNT, UNSPECIFIED SNOMED Code(s): 436514108 (3) Left arm cellulitis Status: Acute Code(s): L03.114 - CELLULITIS OF LEFT UPPER LIMB SNOMED Code(s): 22745593748383288 (4) Postoperative cellulitis of surgical wound Status: Acute Code(s): T81.49XA - INFECTION FOLLOWING A PROCEDURE, OTHER SURGICAL SITE, INIT SNOMED Code(s): 153858917 Plan: 1patient presented the hospital with left upper extremity pain swelling and redness in this patient who did have a recent melanoma resection from the left upper extremity now with concerning for cellulitis and an abscess patient did have a CT which shows soft tissue thickening and edema but did not mention any abscess however clinically she did have purulent drainage that has been suggestive of abscess will need to cover for the gram-positive as well as gram- negative pathogen failing outpatient oral Keflex therapy 2-blood culture have been negative and local culture growing MSSA 3-patient showing improvement on cefazolin she will finish therapy with oral Keflex prescription sent to the pharmacy discussed with [employer]ER[employer] MANAGER for admitting team Dictation was produced using [employer] dictation software. please excuse any gram matical, word or spelling errors. Time with Patient: Less than 30
== END 2024-10-29 16:48 | disposition home or self-care (01) | DRG 863 ==
LOC: EC 07:35 → 5NMEDONC 10:54 → OBSVTOIN 10-29 11:22 → UNDODISOB 10-29 16:48
PROVIDERS: ADMIT Internal Medicine; ATTEND Internal Medicine
DX: T81.41XA Infection following a procedure, superficial incisional surgical site, initial encounter (principal); C43.62 Malignant melanoma of left upper limb, including shoulder; I10 Essential (primary) hypertension; K21.9 Gastro-esophageal reflux disease without esophagitis; B95.61 Methicillin susceptible Staphylococcus aureus infection as the cause of diseases classified elsewhere; L03.114 Cellulitis of left upper limb; L02.414 Cutaneous abscess of left upper limb; Y84.8 Other medical procedures as the cause of abnormal reaction of the patient, or of later complication, without mention of misadventure at the time of the procedure; Z87.19 Personal history of other diseases of the digestive system; Z79.899 Other long term (current) drug therapy
CPT/HCPCS: 36415; 80048; 80053; 82565; 83605; 85025; 85652; 86140; 87040; 87070; 87075; 87077; 87186; 87205; 87635; 96365; 96366; 96367; 96372; 96375; 96376; 99285

== ENCOUNTER → 2024-12-13 | Outpatient (CLI) | payer MEDICARE ==
--- NOTE | 2024-12-13 19:42 | BD ---
EXAMINATION TYPE: Axial Bone Density DATE OF EXAM: 12/13/2024 CLINICAL HISTORY: 74 years old Female. ICD-10 CODE: M85.80 DISORDER OF BONE DENSITY , Additional His tory: Height: 62 Weight: 123.0 FRAX RISK QUESTIONS: Alcohol (3 or more units per day): no Family History (Parent hip fracture): no Glucocorticoids (More than 3mos): no (Ex: prednisone, prednisolone, methylprednisolone, dexamethasone, and hydrocortisone). History of Fracture in Adulthood: no Secondary Osteoporosis: 1. Type 1 Diabetes: no 2. Hyperthyroidism: no 3. Menopause before 45: no 4. Malnutrition: no 5. Chronic liver disease: no Rheumatoid Arthritis: no Current Tobacco Use: no RISK FACTORS HISTORY OF: Hip Fracture (Right/Left): no Spine Fracture: no History of Wrist Fracture: no Surgery to Spine/Hip(right/left)/Wrist (right/left): no MEDICATIONS: Thyroid Medications: no Osteoporosis Medications:no EXAM MEASUREMENTS: Bone mineral densitometry was performed using the [employer] System. Bone mineral density as measured about the Lumbar spine is: ----- L1-L4(G/cm2): 0.869 T Score Values are as follows: ----- L1: -2.5 ----- L2: -2.4 ----- L3: -1.7 ----- L4: -3.6 ----- L1-L4: -2.6 Z Score Values are as follows: ----- L1: -0.4 ----- L2: -0.4 ----- L3: 0.3 ----- L4: -1.5 ----- L1-L4: -0.5 Bone mineral density has: decreased -5.6 % since study of: 12/01/2021 Bone mineral density about the R hip (g/cm2): 0.673 Bone mineral density about the L hip (g/cm2): 0.693 T Score values are as follows: -----R Neck: -2.5 -----L Neck: -2.0 -----R Total: -2.7 -----L Total: -2.5 Z Score values are as follows: -----R Neck: -0.3 -----L Neck: 0.2 -----R Total: -0.7 -----L Total: -0.5 Bone mineral density has: decreased -7.7 % since study of: 12/01/2021 FRAX%s: The graph provided illustrates a 16.0% chance for a major osteoporotic fx and a 5.3% chance f or the hips probability for fx in 10 years time. IMPRESSION: Osteoporosis (T Score less than -2.5). There is increased fracture risk and therapy is usually indicated based on age. Re-Screen 1-2 years. NOTE: T-SCORE=SD OF THE YOUNG ADULT MEAN. [facility], , 12/13/2024 7:40 PM
--- NOTE | 2024-12-14 13:33 | MM ---
Reason for Exam: Screening (asymptomatic). Last screening mammogram was performed 12 month(s) ago. Patient History: Menarche at age 12. First Full-Term at age 20. Postmenopausal. Other cancer, age 29. Hormonal Contraceptives for 3 years from age 17 until age 39. Risk Values: Abi 5 year model risk: 1.6%. NCI Lifetime model risk: 3.4%. Prior Study Comparison: 12/01/2021 Bilateral MG 3D screening mammo w/cad, [facility]. 12/02/2022 Bilateral MG 3D screening mammo w/cad, [facility]. 12/13/2023 Bilateral MG 3D screening mammo w/cad, [facility]. Tissue Density: The breasts are heterogeneously dense, which may obscure small masses. Findings: Analyzed By CAD. There is no suspicious group of microcalcifications or new suspicious mass in either breast. Overall Assessment: Negative, BI-RAD 1 Management: Screening Mammogram of both breasts in 1 year. Patient should continue monthly self-breast exams. A clinical breast exam by your physician is recommended on an annual basis. This exam should not preclude additional follow-up of suspicious palpable abnormalities. Note on Abi scores and lifetime risk: 1. A Abi score greater than 3% is considered moderate risk. If this is the case, consider specialist referral to assess eligibility for a risk reducing agent. 2. If overall lifetime risk for the development of breast cancer is 20% or higher, the patient may qualify for future screening with alternating mammogram and breast MRI. [facility], , 12/14/2024 1:30 PM. Electronically signed and approved by: Lupillo Wood M.D. Radiologist
== END | disposition home or self-care (01) ==
LOC: RADMAMWWP 13:44
PROVIDERS: ATTEND Family Medicine
DX: Z12.31 Encounter for screening mammogram for malignant neoplasm of breast (principal); M85.80 Other specified disorders of bone density and structure, unspecified site; R92.333 Mammographic heterogeneous density, bilateral breasts; Z78.0 Asymptomatic menopausal state; Z92.0 Personal history of contraception
CPT/HCPCS: 77063; 77067; 77080